=== PATIENT | male | born 1970 | race Caucasian/White ===

== ENCOUNTER 2024-10-30 07:30 | Day surgery (SDC) | payer BC, SELFPAY ==
[2024-10-29 15:09] VITALS: BMI 30.9
[2024-10-30] VITALS (12 sets, daily range): BP systolic 107–165; BP diastolic 66–104; PULSE 67–78; RESP 10–24; TEMP 36.4–36.5; O2SAT 92–97; BMI 30.9
[2024-10-30] MEDS: SODIUM CHLORIDE 0.9% 250 ML 250 ML 125 ML IV (09:20)
[2024-10-30] MEDS: DiphenhydrAMINE INJ 50 MG/ML VIAL 25 MG IV (09:28)
[2024-10-30] MEDS: MIDAZOLAM INJ 1 MG/ML VIAL 2 ML (ASD USE ONLY) 2 MG IV (09:30)
[2024-10-30] MEDS: fentaNYL CIT INJ 50 mCg/ML AMP 2ML (ASD USE ONLY) 25 MCG IV (09:30)
[2024-10-30] MEDS: ONDANSETRON INJ 2 MG/ML INJ 2 ML 4 MG IV (09:40)
== END 2024-10-30 10:25 | disposition home or self-care (01) ==
PROVIDERS: PCP Nurse Practitioner Family; Referring Provider Specialist; Visit Provider Specialist
PROC: 0DBE8ZX Excision of Large Intestine, Via Natural or Artificial Opening Endoscopic, Diagnostic (ICD-10-PCS; CPT 45380; principal; 2024-10-30 09:15)
DX: Z12.11 Encounter for screening for malignant neoplasm of colon (principal); D12.2 Benign neoplasm of ascending colon; D12.3 Benign neoplasm of transverse colon; K64.9 Unspecified hemorrhoids; K57.30 Diverticulosis of large intestine without perforation or abscess without bleeding
CPT/HCPCS: 45385; J1200; J2250; J2405; J3010; J7050

== ENCOUNTER → 2024-11-11 | Outpatient (CLI) | payer BC, SELFPAY ==
[2024-11-11 18:19] LABS: Glucose Estimated Average 123 mg/dL (80-131); Hemoglobin A1C 5.9 % Hgb (4.8-6.0)
== END | disposition home or self-care (01) ==
PROVIDERS: PCP Nurse Practitioner Family; Referring Provider Nurse Practitioner Family; Visit Provider Nurse Practitioner Family
DX: E11.9 Type 2 diabetes mellitus without complications (principal); E03.9 Hypothyroidism, unspecified
CPT/HCPCS: 36415; 83036